=== PATIENT | male | born 2000 | race Caucasian/White ===

== ENCOUNTER 2023-04-17 15:33 | Outpatient (OUT) | payer BC, OTHER, SELFPAY ==
[2023-04-17 16:01] LABS: Hemoglobin 15.6 g/dL (14.0-18.0)
[2023-04-19 08:11] LABS: Testosterone 344 ng/dL (264-916)
== END 2023-04-17 15:34 | disposition home or self-care (01) ==
LOC: LAB 15:41
PROVIDERS: PCP Family Medicine
DX: E29.1 Testicular hypofunction (principal)
CPT/HCPCS: 36415; 84403; 85018

== ENCOUNTER 2023-08-12 12:11 | Outpatient (OUT) | payer BC, OTHER, SELFPAY ==
--- OUTSIDE RECORDS SUMMARY | 2023-08-12 12:15 | XMS_ITS | CCD ---
Author Organization [facility] Care Team Providers Care Supply Specialist Name Role Phone Yoel Concepcion Unavailable MAYELA, DR JULES Mortensen Primary Care Unavailable MARU FARIAS Consulting Unavailable JOSUÉ, DIANN Admitting Unavailable JOSUÉ, DIANN Attending Unavailable NADERENathalie, DR VICENTE A Primary Care Unavailable MISC, DR GARCIA Attending Unavailable MISC, DR GARCIA Admitting Unavailable MISC, DR GARCIA Consulting Unavailable NADERENathalie, DR JULES Mortensen Primary Care Unavailable MISC, DR GARCIA Attending Unavailable MISC, DR GARCIA Admitting Unavailable MISC, DR GARCIA Consulting Unavailable MISC, DR GARCIA Attending Unavailable MISC, DR GARCIA Admitting Unavailable MISC, DR GARCIA Consulting Unavailable NADERENathalie, DR JULES Mortensen Primary Care Unavailable MISC, DR GARCIA Attending Unavailable NADERENathalie, DR JULES Mortensen Primary Care Unavailable MISC, DR GARCIA Admitting Unavailable MISC, DR GARCIA Consulting Unavailable MISC, DOCTOR Attending Unavailable NADERER, DR JULES Mortensen Primary Care Unavailable MISC, DR GARCIA Admitting Unavailable MISC, DR GARCIA Consulting Unavailable ZIEBER, DR KEITH Zelaya Consulting Unavailable MISC, DR GARCIA Attending Unavailable NADERER, DR JULES Mortensen Primary Care Unavailable MISC, DR GARCIA Admitting Unavailable MISC, DR GARCIA Consulting Unavailable YEH, RADHA Consulting Unavailable Yoel Concepcion Unavailable [phone] Yoel Concepcion MD Unavailable Yoel Concepcion MD Unavailable BHUPENDRA MCFADDEN Referring Unavailable BHUPENDRA MCFADDEN Attending Unavailable BHUPENDRA MCFADDEN Attending Unavailable Medications Current Medications Medication Drug Class(es) Dates Sig (Normalized) Sig (Original) 2500 mg testosterone 0.0162 mg/mg topical gel (20 sources) Androgen Start: 06-02-2023 End: 12-03-2023 testosterone 1.62 % (40.5 mg/2.5 gram) glpk Indications: Hypogonadism, male Apply one packet per day alternating with 2 packet per day. Requested dispense is 3 months supply = 337.5 gram of the gel = 135 packets. 337.5 g 1 06/02/2023 12/03/2023 Active Start: 01-31-2023 End: 08-02-2023 testosterone 1.62 % (40.5 mg /2.5 gram) glpk Indications: Hypogonadism, male APPLY ONE PACKET TO THE SKIN DAILY 75 g 5 01/31/2023 06/02/2023 Discontinued Start: 06-17-2022 End: 12-23-2022 testosterone 1.62 % (40.5 mg /2.5 gram) glpk Indications: Hypogonadism, male Apply one packet per day alternating with 2 packet per day. Requested dispense is 3 months supply = 337.5 gram of the gel = 135 packets. 337.5 g 1 06/22/2022 12/23/2022 Active Start: 04-28-2022 End: 10-29-2022 testosterone 1.62 % (40.5 mg /2.5 gram) glpk Indications: Hypogonadism, male APPLY ONE PACKET TO THE SKIN DAILY DIRECTED. Requested dispense is 3 months supply = 225 gram of the gel = 90 packets. 225 g 1 04/28/2022 06/17/2022 Discontinued Start: 04-25-2022 End: 05-25-2022 testosterone 1.62 % (40.5 mg /2.5 gram) glpk Indications: Hypogonadism, male APPLY ONE PACKET TO THE SKIN DAILY DIRECTED 75 g 2 04/25/2022 04/28/2022 Discontinued Start: 11-29-2021 End: 04-25-2022 testosterone 1.62 % (40.5 mg /2.5 gram) glpk Indications: Hypogonadism, male Apply 1 Packet as directed once daily for 30 days. 30 Packet 2 11/29/2021 04/25/2022 Discontinued Start: 07-06-2021 End: 11-04-2021 testosterone 1.62 % (40.5 mg /2.5 gram) glpk Indications: Hypogonadism, male Apply 1 Packet as directed once daily for 30 days. 30 Packet 0 10/05/2021 Active Comment on above: Apply 1 Packet as di rected once daily for 60 days. Requested dispense per month is 30 packets or 75 gram of gel. Apply 1 Packet as di rected once daily for 30 days. APPLY ONE PACKET TO THE SKIN DAILY DIRECTED APPLY ONE PACKET TO THE SKIN DAILY DIRECTED. Requested dispense is 3 months supply = 225 gram of the gel = 90 packets. Apply one packet per day alternating with 2 packet per day. Requested dispense is 3 months supply = 337.5 gram of the gel = 135 packets. APPLY ONE PACKET TO THE SKIN DAILY Problems Active Problems Problem Classification Problem Date Documented Da te Episodic/Chronic Other endocrine disorders (20 sources) Male hypogonadism; Translations: [Testicular hypofunction] Onset: 07-05-2021 07-05-2021 Chronic Other endocrine disorders (20 sources) Pituitary cyst; Translations: [Other disorders of pituitary gland] Onset: 07-05-2021 07-05-2021 Chronic Other endocrine disorders (5 sources) Testicular hypofunction; Translations: [TESTICULAR HYPOFUNCTION] Onset: 07-05-2021 Chronic Other endocrine disorders (1 source) Other disorders of pituitary gland; Translations: [OTHER DISORDERS OF PITUITARY GLAND] Onset: 08-17-2021 Chronic Other liver diseases (4 sources) Alkaline phosphatase raised; Translations: [Abnormal levels of other serum enzymes] Onset: 07-06-2021 07-06-2021 Episodic Other liver diseases (20 sources) Alkaline phosphatase bone isoenzyme raised; Translations: [Abnormal levels of other serum enzymes] Onset: 07-06-2021 07-14-2021 Episodic Other screening for suspected conditions (not mental disorders or infectious disease) (20 sources) Karyotype evaluation abnormal; Translations: [Other abnormal findings in specimens from other organs, systems and tissues] Onset: 07-14-2021 07-14-2021 Episodic Poisoning by nonmedicinal substances (4 sources) Toxic effect of venom of bees, accidental (unintentional), initial encounter; Translations: [TOXIC EFF VENOM BEES ACC INIT ENC] Onset: 11-24-2021 Episodic Past or Other Problems Problem Classification Problem Date Documented Da te Episodic/Chronic Other circulatory disease (20 sources) Elevated blood-pressure reading without diagnosis of hypertension; Translations: [Elevated blood-pressure reading, without diagnosis of hypertension] Onset: 07-05-2021 07-05-2021 Episodic Other liver diseases (6 sources) Abnormal levels of other serum enzymes; Translations: [ABNORMAL LEVELS OTHER SERUM ENZYMES] Onset: 07-14-2021 Episodic Results Test Name Value Interpretation Reference [facility] Telephone (ENDOAV) ROMAN CHAWLA ([id number]) 4 M Date Time Provider Department 04/20/23 BHUPENDRA MCFADDEN During your visit today, we recorded the following information about you: Sabrina Morrison RN 04/20/2023 12:03 PM Signed Lab results received for Testosterone. Updated in [facility] as External Lab. Sent lab to [facility]. Bhupendra Mcfadden MD 04/24/2023 12:27 PM Signed Please obtain final report/additional results. Bioavailable testosterone, male and Hemoglobin were requested. Only total testosterone is received. Bhupendra Mcfadden MD, JUAN J Sabrina Morrison, ANGY 04/25/2023 9:58 AM Signed I called [facility] and left a detailed VM asking for results to be faxed to us. Left POD A number to call back also. Sabrina Morrison RN 04/25/2023 12:34 PM Signed Received a call back, Hgb will be sent over. They did not draw for the bioavailable testosterone, male. They tried to see if it could be added on, it cannot. Not enough in the sample. They will credit the patient's account. Sabrina Morrison RN 04/26/2023 10:46 AM Signed Received HGB from [employer]. Placed in folder. Bhupendra Mcfadden MD 05/01/2023 5:31 PM Signed Patient was informed through a [employer] message. Bhupendra Mcfadden MDJUAN J Allergies As of Date: 04/20/2023 (No Known Allergies) Date Reviewed: 10/27/2022 Reviewed by: Rosa Youssef Ma - Fully Assessed Reason for Visit: Results [95] Order(s):TESTOSTERONE, FREE [[id number]] Order #: [id number] Prescriptions as of 05/01/2023 - testosterone 1.62 % (40.5 mg/2.5 gram) glpk APPLY ONE PACKET TO THE SKIN DAILY Problem List As Of Date 04/20/2023 Noted Resolved Hypogonadism, male [E29.1] 07/05/2021 Pituitary cyst (HCC) [E23.6] 07/05/2021 Elevated blood pressure reading without diagnos*07/05/2021 High serum bone-specific alkaline phosphatase [*07/06/2021 Abnormal karyotype [R89.8] 07/14/2021 Encounter Status:Closed by SABRINA MORRISON on 04/20/23 Normal [facility] TESTOSTERONE, FREEon 024 Testosterone [Mass/Vol] 344 ng/dL 264 - 916 [facility] CNCOon 04-10-2023 CNCO Letter Text Normal [facility] CNPNon 04-06-2023 CNPN Telephone (EMQ) ROMAN CHAWLA ([id number]) 4 M Date Time Provider Department 04/06/23 BHUPENDRA MCFADDEN EMQ During your visit today, we recorded the following information about you: Irish Yun 04/06/2023 4:26 PM Signed Testosterone has been approved Notified patient through [employer] Approved [id number] Prior authorization approved Payer: Hilda MAHONEY Case: [id number], Status: Approved, Coverage Starts on: 04/06/2023 12:00:00 AM, Coverage Ends on: 04/05/2024 12:00:00 AM. Approval Details Authorization number: [id number] Authorized from April 06, 2023 to April 05, 2024 Allergies As of Date: 04/06/2023 (No Known Allergies) Date Reviewed: 10/27/2022 Reviewed by: Rosa Youssef Ma - Fully Assessed Reason for Visit: Medication Preauthorization [914] Cmt: Testosterone approved Prescriptions as of 04/06/2023 - testosterone 1.62 % (40.5 mg/2.5 gram) glpk APPLY ONE PACKET TO THE SKIN DAILY Problem List As Of Date 04/06/2023 Noted Resolved Hypogonadism, male [E29.1] 07/05/2021 Pituitary cyst (HCC) [E23.6] 07/05/2021 Elevated blood pressure reading without diagnos*07/05/2021 High serum bone-specific alkaline phosphatase [*07/06/2021 Abnormal karyotype [R89.8] 07/14/2021 Encounter Status:Closed by IRISH YUN on [facility]06/[facility] ([id number]) [birth year]/ M Date Time Provider Department 04/06/23 BHUPENDRA MCFADDEN EMQ During your visit today, we recorded the following information about you: Irish Yun 04/06/2023 9:01 AM Signed Initiated PA for Testosterone through [employer] via [facility] Waiting for next steps Questions completed- yes Waiting for determination -pending Allergies As of Date: 04/06/2023 (No Known Allergies) Date Reviewed: 10/27/2022 Reviewed by: Rosa Youssef Ma - Fully Assessed Reason for Visit: Medication Preauthorization [914] Cmt: Testosterone Prescriptions as of 04/06/2023 - testosterone 1.62 % (40.5 mg/2.5 gram) glpk APPLY ONE PACKET TO THE SKIN DAILY Problem List As Of Date 04/06/2023 Noted Resolved Hypogonadism, male [E29.1] 07/05/2021 Pituitary cyst (HCC) [E23.6] 07/05/2021 Elevated blood pressure reading without diagnos*07/05/2021 High serum bone-specific alkaline phosphatase [*07/06/2021 Abnormal karyotype [R89.8] 07/14/2021 Encounter Status:Closed by IRISH YUN on 04/06/23 Normal [facility] CNCOon 11-07-2022 CNCO Letter Text Normal [facility] ALK PHOS BONE SPECon 023 ALK PHOSPHATASE, BONE 34.9 ug/L High 10.0-28.8 [facility] Comment on above: Order Comment: Speci men Type: BLOOD SPECIMEN Ordering Facility: [facility] Address: [address] [place], [place] [address] Result Comment: INTE RPRETIVE INFORMATION: Bone Specific Alkaline Phosphatase Liver alkaline phosphatase can affect the measurement of bone specific alkaline phosphatase in this assay. Each 100 U/L of liver alkaline phosphatase contributes an additional 2.5 to 5.8 ug/L to the bone specific alkaline phosphatase result. Performed By: [facility] [address] [place] [address] [facility] Therapist: Celso Torres MD, PhD CLIA Number: [id number] Performed By: #### A PBONE #### [facility] CLIA [id number] [address] [place] [address] BIOAVAILABLE TESTOSTERONE, A DULT MALEon 10-27-2022 Albumin [Mass/Vol] 5.0 g/dL High 3.9 - 4.9 g/dL [facility] Sex hormone binding globulin [Moles/Vol] 27 nmol/L 14 - 82 nmol/L [facility] Testo Bioavailable 386.8 ng/dL High 105.0 - 3 24.0 ng/dL [facility] Testo Free Calc 124.0 pg/mL High 38.0 - 120.0 pg/mL [facility] Testo Percent Free 2.0 % 1.1 - 2.6 % [facility] Testosterone [Mass/Vol] 621 ng/dL 193 - 824 ng/dL [facility] Albumin [Mass/Vol] 5.0 g/dL High 3.9-4.9 [facility] Comment on above: Order Comment: Speci men Type: BLOOD SPECIMEN Ordering Facility: [facility] Address: [address] [place], [place] [address] Performed By: #### S QBTESTM, 2730-09 #### [facility] CLIA [id number] [address] [place] [address] [place] Sex hormone binding globulin [Moles/Vol] 27 nmol/L Normal 14-82 [facility] Comment on above: Order Comment: Speci men Type: BLOOD SPECIMEN Ordering Facility: [facility] Address: [address] [place] [address] Performed By: #### S QBTESTM, 2730-09 #### [facility] CLIA [id number] [address] [place] [address] [place] Testosterone [Mass/Vol] 621 ng/dL Normal 193-824 [facility] Comment on above: Order Comment: Speci men Type: BLOOD SPECIMEN Ordering Facility: [facility] Address: [address] [place] [address] Result Comment: A te stosterone level in the 193-320 ng/dL range with associated clinical symptoms is considered low and may indicate hypogonadism (from [facility] 2010 363:123-135). Results >320 ng/dL are considered normal. Performed By: #### S QBTESTM, 2730-09 #### [facility] CLIA [id number] [address] [place] [address] [place] TSTBIO 386.8 ng/dL High 105.0-324.0 [facility] Comment on above: Order Comment: Speci men Type: BLOOD SPECIMEN Ordering Facility: [facility] Address: [address] [place], [place] [address] Performed By: #### S QBTESTM, 2730-09 #### [facility] CLIA [id number] [address] TSTFRC 124.0 pg/mL High 38.0-120.0 [facility] Comment on above: Order Comment: Speci men Type: BLOOD SPECIMEN Ordering Facility: [facility] Address: [address] [place] [address] Performed By: #### S QBTESTM, 2738 #### [facility] CLIA [id number] [address] [place] [address] TSTFRP 2.0 % Normal 1.1-2.6 [facility] Comment on above: Order Comment: Speci men Type: BLOOD SPECIMEN Ordering Facility: [facility] Address: [place] [address] Performed By: #### S QBTESTM, 2738 #### [facility] CLIA [id number] [address] [place] [address] CNOVon 10-27-2022 CNOV Office Visit (ENDOAV ) ROMAN CHAWLA ([id number]) 4 M Date Time Provider Department 10/27/22 1:40 PM BHUPENDRA MCFADDEN ENDOAV During your visit today, we recorded the following information about you: Pulse Respiration Blood pressure Weight 68/minute 16/minute 118/79 71.2 kg Bhupendra Mcfadden MD 10/27/2022 4:34 PM Signed HISTORY OF PRESENT ILLNESS: Roman 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 Interval History: Patient is feeling well. He is using his testosterone regularly for the most part. He may forget to use it on occassions. Patient is taking no calcium and vitamin D. Patient is exercising 3 times a week, each is about 60 minutes. Patient has stable weight Current Outpatient Medications Medication Sig testosterone 1.62 % (40.5 mg/2.5 gram) glpk Apply one packet per day alternating with 2 packet per day. Requested dispense is 3 months supply = 337.5 gram of the gel = 135 packets. No current facility-administered medications for this visit. PHYSICAL EXAMINATION: BP 118/79 Pulse 68 Resp 16 Wt 71.2 kg (157 lb) BMI 21.71 kg/m? Normal appearance and development of muscle mass HEENT: no pallor or jaundice, no exophthalmous or lid lag Neck: no thyromegaly, no adenopathy, no thyroid or carotid bruit. Heart: RRR no murmur or gallop Deep tendon reflexes are + 2 with normal relaxation phase and no tremor in upper extremities. There were no new labs since last visit May,. IMPRESSION AND PLAN: 1. 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 Pituitary looked normal on MRI (Mar 2020 and July 2021). Incidentally, a 2.5 mm pituitary/arachnoid cyst was diagnosed. Testicular ultrasound confirmed small testicles, no other finding. Patient is currently on treatment with testosterone gel 1.62%, using 2.5 gram packs, alternating 1 pack per day and 2 packs per day. Obtain labs. Patient's mother indicated the need for prior auth for testosterone gel. We will process this request. 2. Elevated Alk phos, bone specific: Incidental finding on labs July 05, 2021. No explanation is identified for this elevated. PTH and vitamin D were normal. Vitamin D was on the lower limit of reference range (Oct, 2021). Bone survey was normal (August,). Repeat labs 3. Pituitary Cyst: An incidental finding on a pituitary MRI Mar, 2020. No new item today. Inactive problem. Pituitary functions test are normal (labs July,). The cyst was stable on follow up pituitary MRI July,. Patient expressed understanding and agreed with plan. He was accompanied by his mother. Bhupendra Mcfadden MD, JUAN J Allergies As of Date: 10/27/2022 (No Known Allergies) Date Reviewed: 10/27/2022 Reviewed by: Rosa Youssef Ma - Fully Assessed Reason for Visit: Hypogonadism [2925] Primary Visit Diagnosis:Hypogonadism , male [E29.1] Other Visit Diagnosis:High serum bone-specific alkaline phosphatase [R74.8] Order(s):ALK PHOS BONE SPEC [SQAPBONE] Order #: [id number] FUTURE RENAL FUNCTION PANEL [SQRFP] Order #: [id number] FUTURE BIOAVAILABLE TESTOSTERONE, ADULT MALE [SQBTESTM] Order #: [id number] FUTURE HEMOGLOBIN (HGB) [SQHGB] Order #: [id number] FUTURE PTH INTACT BLD [SQPTHI] Order #: [id number] FUTURE Prescriptions as of 10/27/2022 - testosterone 1.62 % (40.5 mg/2.5 gram) glpk Apply one packet per day alternating with 2 packet per day. Requested dispense is 3 months supply = 337.5 gram of the gel = 135 packets. Problem List As Of Date 10/27/2022 Noted Resolved Hypogonadism, male [E29.1] 07/05/2021 Pituitary cyst (HCC) [E23.6] 07/05/2021 Elevated blood pressure reading without diagnos*07/05/2021 High serum bone-specific alkaline phosphatase [*07/06/2021 Abnormal karyotype [R89.8] 07/14/2021 Disposition: Return in about 1 year (around 10/28/2023), or based on test results. Follow-up and Disposition History for Encounter Date Provider Department Center 10/27/2022 [id number] MCFADDEN ENDOAV REJ Letter Text Encounter Status:Closed by BHUPENDRA MCFADDEN on 10/27/22 Normal [facility] HEMOGLOBIN (HGB)on Hemoglobin (Bld) [Mass/Vol] 15.0 g/dL 13.0 - 17.0 g/dL [facility] Hgb Bld-ncon 10-27-2022 Hemoglobin (Bld) [Mass/Vol] 15.0 g/dL Normal 13.0-17.0 [facility] Comment on above: Order Comment: Speci men Type: BLOOD SPECIMEN Ordering Facility: [facility] Address: [address] [place] [address] [place], [place] Performed By: #### 7 18-7 #### [facility] CLIA [id number] [address] [place] [address] [place] PTH INTACT BLDon 10-27-2022 Parathyrin.intact [Mass/Vol] 40 pg/mL 15 - 65 pg/mL [facility] PTH-Intact SerPl-mCncon 08-3 Parathyrin.intact [Mass/Vol] 40 pg/mL Normal 15-65 [facility] Comment on above: Order Comment: Speci men Type: BLOOD SPECIMEN Ordering Facility: [facility] Address: [address] Performed By: #### S QBTEST, 2731-8 #### [facility] CLIA [id number] [address] [facility] [id number] [address] [place] Renal function 2000 panelon 10-27-2022 Albumin [Mass/Vol] 4.9 g/dL Normal 3.9-4.9 [facility] Comment on above: Order Comment: Speci men Type: BLOOD SPECIMEN Ordering Facility: [facility] Address: [address] Performed By: #### 2 4362-6 #### [facility] IA [id number] [address] [place] [address] [place] Anion gap [Moles/Vol] 11 mmol/L Normal 9-18 [facility] Comment on above: Order Comment: Speci men Type: BLOOD SPECIMEN Ordering Facility: [facility] Address: [address] Performed By: #### 2 4362-6 #### [facility] IA [id number] [address] [place] [address] [place] Calcium [Mass/Vol] 10.0 mg/dL Normal 8.5-10.2 [facility] Comment on above: Order Comment: Speci men Type: BLOOD SPECIMEN Ordering Facility: [facility] Address: [address] Performed By: #### 2 4362-6 #### [facility] CLIA [id number] [address] [place] [address] [place] Chloride [Moles/Vol] 103 mmol/L Normal 97-105 [facility] Comment on above: Order Comment: Speci men Type: BLOOD SPECIMEN Ordering Facility: [facility] Address: [address] Performed By: #### 2 4362-6 #### [facility] CLIA [id number] [address] [place] [address] [place] CO2 [Moles/Vol] 27 mmol/L Normal 22-30 [facility] Comment on above: Order Comment: Speci men Type: BLOOD SPECIMEN Ordering Facility: [facility] Address: [address] [place] [address] Performed By: #### 2 4362-6 #### [facility] CLIA [id number] [address] [place] [address] [place] Creatinine [Mass/Vol] 0.98 mg/dL Normal 0.73-1.22 [facility] Comment on above: Order Comment: Innai men Type: BLOOD SPECIMEN Ordering Facility: [facility] Address: [address] [place] [address] Performed By: #### 2 4362-6 #### [facility] CLIA [id number] [address] [place] [address] [place] Creatinine and Glomerular filtration rate.predicted panel (S/P/Bld) 113 mL/min/1.73m??? Normal >=60 [facility] Comment on above: Order Comment: Speci men Type: BLOOD SPECIMEN Ordering Facility: [facility] Address: [address] [place], [place] [address] Result Comment: Gabrielle mated Glomerular Filtration Rate (eGFR) is calculated using the 2020 CKD-EPI creatinine equation. This equation utilizes serum creatinine, sex, and age as parameters. The creatinine assay has traceable calibration to isotope dilution-mass spectrometry. Refer to KDIGO guidelines for clinical interpretation. In patients with unstable renal function, e.g. those with acute kidney injury, the eGFR may not accurately reflect actual GFR. Performed By: #### 2 4362-6 #### [facility] CLIA [id number] [address] [place] [address] [place] Glucose [Mass/Vol] 88 mg/dL Normal 74-99 [facility] Comment on above: Order Comment: Billy simms Type: BLOOD SPECIMEN Ordering Facility: [facility] Address: [address] [place] [address] Result Comment: The [place] Diabetes [employer] (ADA) provides guidance for cutoff values for fasting glucose and random glucose. The ADA defines fasting as no caloric intake for at least 8 hours. Fasting plasma glucose results between 100 to 125 mg/dL indicate increased risk for diabetes (prediabetes). Fasting plasma glucose results greater than or equal to 126 mg/dL meet the criteria for diagnosis of diabetes. In the absence of unequivocal hyperglycemia, results should be confirmed by repeat testing. In a patient with classic symptoms of hyperglycemia or hyperglycemic crisis, random plasma glucose results greater than or equal to 200 mg/dL meet the criteria for diagnosis of diabetes. Reference: Standards of Medical Care in Diabetes 2016, [place] [employer]. Diabetes Care. 2016.39(Suppl 1). Performed By: #### 2 4362-6 #### [facility] CLIA [id number] [place] [address] [place] Phosphate [Mass/Vol] 3.6 mg/dL Normal 2.7-4.8 [facility] [facility] Comment on above: Order Comment: Billy simms Type: BLOOD SPECIMEN Ordering Facility: [facility] Address: [address] [address] Performed By: #### 2 4362-6 #### [facility] CLIA [id number] [place] [address] [place] Potassium [Moles/Vol] 4.4 mmol/L Normal 3.7-5.1 [facility] Comment on above: Order Comment: Billy simms Type: BLOOD SPECIMEN Ordering Facility: [facility] Address: [address] [address] Performed By: #### 2 4362-6 #### [facility] CLIA [id number] [place] [address] [place] Sodium [Moles/Vol] 141 mmol/L Normal 136-144 [facility] Comment on above: Order Comment: Speci men Type: BLOOD SPECIMEN Ordering Facility: [facility] Address: [address] [id number] Performed By: #### 2 4362-6 #### [facility] CLIA [id number] [address] [place] [address] [place] Urea nitrogen [Mass/Vol] 14 mg/dL Normal 9-24 [facility] Comment on above: Order Comment: Speci men Type: BLOOD SPECIMEN Ordering Facility: [facility] Address: [address] [address] Performed By: #### 2 4362-6 #### [facility] CLIA [id number] [address] [place] [address] [place] Albumin [Mass/Vol] 4.9 g/dL 3.9 - 4.9 g/dL [facility] Anion gap [Moles/Vol] 11 mmol/L 9 - 18 mmol/L [facility] Calcium [Mass/Vol] 10.0 mg/dL 8.5 - 10. 2 mg/dL [facility] Chloride [Moles/Vol] 103 mmol/L 97 - 105 mmol/L [facility] CO2 [Moles/Vol] 27 mmol/L 22 - 30 mmol/L [facility] Creatinine [Mass/Vol] 0.98 mg/dL 0.73 - 1.22 mg/dL [facility] Estimated Glomerular Filtration Rate 113 mL/min/1.73m >=60 mL/min/1.73m [facility] Glucose [Mass/Vol] 88 mg/dL 74 - 99 mg/dL [facility] Phosphate [Mass/Vol] 3.6 mg/dL 2.7 - 4.8 mg/dL [facility] Potassium [Moles/Vol] 4.4 mmol/L 3.7 - 5.1 mmol/L [facility] Sodium [Moles/Vol] 141 mmol/L 136 - 144 mmol/L [facility] Urea nitrogen [Mass/Vol] 14 mg/dL 9 - 24 mg/dL [facility] BIOAVAILABLE and FREE TESTOS TERONEon 02-13-2022 % Free TEst. Dialysis 1.2 % Normal [facility] Comment on above: Result Comment: This test was developed and its performance characteristics determined by [facility]. It has not been cleared or approved by the Food and Drug Administration. Reference Range: Adult Males: 1.5 - 3.2 Performed By: #### B IOTEST #### [facility] [address] [place] [address] Dr. Giuliana Horowitz Bio Avail Test. % 38.7 % Normal [facility] Comment on above: Performed By: #### B IOTEST #### [facility] [id number] Giuliana Horowitz Bio Available Test. Serum 136 ng/dL Normal [facility] Comment on above: Result Comment: Refe rence Range: Males (20 - 39y): 128 - 430 Performed By: #### B IOTEST #### [facility] [address] [address] [address] Giuliana Horowitz Free Test. Serum 42 pg/mL Critically low [facility] Comment on above: Result Comment: Refe rence Range: Adult Males: 52 - 280 Performed By: #### B IOTEST #### [facility] [address] [place], [place] [id number] Dr. Giuliana Horowitz Testosterone [Mass/Vol] 351 ng/dL Normal [facility] Comment on above: Result Comment: This test was developed and its performance characteristics determined by [facility]. It has not been cleared or approved by the Food and Drug Administration. Reference Range: Adult Males >18 years 264 - 916 This [facility] LC/MS-MS method is currently certified by the CDC Hormone Standardization Program (HoST). Adult male reference interval is based on a population of healthy nonobese males (BMI <30) between 19 and 39 years old. [email or web address]. JCEM 2017,102;1495-3614 PMID: [id number]. Performed By: #### B IOTEST #### [facility] [address] [place], [place] [id number] Dr. Giuliana Horowitz BONE-SPECIFIC ALK PHOS (BAP) on 11-23-2021 Bone-Specific Alkaline Phosphatase 63.0 ug/L Critically high 12.2-36.6 [facility] Comment on above: Result Comment: Perf ormed at: BN Performed By: #### B ALP #### [facility] [address] [place] [address] Dr. Giuliana Horowitz Test Information . Normal [facility] Comment on above: Result Comment: Perf ormed at: TG Performed By: #### B ALP #### [facility] [address] [address] [address] Giuliana Horowitz TESTOSTERONE, FREE,DIRECT, T OTALon 11-21-2021 Free Testosterone(Direct ) 25.5 pg/mL Normal Not Estab. [facility] Comment on above: Result Comment: Perf ormed at: BN Performed By: #### T ESTFRD #### [facility] [address] [place] [address] Dr. Giuliana Horowitz Testosterone [Mass/Vol] 887 ng/dL Critically high 150-785 [facility] Comment on above: Result Comment: Age Range 0 - 5 months 0 - 650 6m- 8 years 0 - 36 9 - 10 years 0 - 21 11 years 1 - 161 12 years 2 - 521 13 - 15 years 28 - 656 16 - 19 years 150 - 785 >19 years 264 - 916 Performed at: CB Performed By: #### T ESTFRD #### [facility] [address] [place] [address] Dr. Giuliana Horowitz PTH INTACTon 11-19-2021 PTH, Intact 22 pg/mL Normal 15-65 [facility] Comment on above: Performed By: #### P THINT #### [facility] [address] [place] [address] Dr. Giuliana Horowitz CALCIUMon 11-18-2021 Calcium [Mass/Vol] 9.2 mg/dL Normal 8.5-10.1 [facility] Comment on above: Performed By: #### T ESTFWB #### [facility] [address] [place] [address] Dr. Giuliana Horowitz HEMOGLOBINon 11-18-2021 Hemoglobin (Bld) [Mass/Vol] 14.8 g/dL Normal 14.0-18.0 [facility] Comment on above: Performed By: #### T ESTFWB #### [facility] [address] [place] [address] Dr. Giuliana Horowitz VITAMIN D 25 OHon 11-18-2021 VIT D 25-OH 32.5 ng/mL Normal [facility] Comment on above: Performed By: #### A LKPISO #### [facility] [address] [place] [address] Dr. Giuliana Horowitz VIT D RANGES SEE BELOW Normal [facility] Comment on above: Result Comment: <20 ng/mL Vit D deficient 20 - <30 ng/mL Vit D insufficient 30 - 100 ng/mL Vit D sufficient >100 ng/mL Potential Toxicity Performed By: #### A LKPISO #### [facility] [address] [place] [address] Dr. Giuliana Horowitz XR BONE SURVEYon 09-14-2021 XR BONE SURVEY EXAMINATION: XR BONE SURVEY HISTORY: High enzyme level in serum COMPARISON: No relevant comparison available. TECHNIQUE: Two lateral projections of the skull. A lateral projection of the C-spine, T-spine and L-spine. Single view of the chest and pelvis. Single view of each humerus, forearm, femur, and tibia-fibula. FINDINGS: SKULL: No lytic lesion, periosteal reaction/thickening, fracture, or dislocation. C-SPINE: No lytic lesion, periosteal reaction/thickening, fracture, or dislocation. T-SPINE: No lytic lesion, periosteal reaction/thickening, fracture, or dislocation. L-SPINE: No lytic lesion, periosteal reaction/thickening, fracture, or dislocation. CHEST: No expansile lesion, lytic lesion, or fracture. PELVIS: No lytic lesion, periosteal reaction/thickening, fracture, or dislocation. R HUMERUS: No lytic lesion, periosteal reaction/thickening, fracture, or dislocation. L HUMERUS: No lytic lesion, periosteal reaction/thickening, fracture, or dislocation. R FEMUR: No lytic lesion, periosteal reaction/thickening, fracture, or dislocation. L FEMUR: No lytic lesion, periosteal reaction/thickening, fracture, or dislocation. SOFT TISSUES: No visible swelling, nodules, visible mass, or radiopaque foreign body. IMPRESSION: 1. Normal appearance of the bones. No suspicious findings. Electronically authenticated by: KEITH TERRIBRIAN Date: 2021-09-14 07:49 Normal [facility] TESTOSTERONE, FREE,DIRECT, T OTALon 08-18-2021 Free Testosterone(Direct ) 21.1 pg/mL Normal Not Estab. [facility] Comment on above: Result Comment: Perf ormed at: BN Performed By: #### T ESTFWB #### [facility] [id number] Giuliana Horowitz Testosterone [Mass/Vol] 704 ng/dL Normal 150-785 [facility] Comment on above: Result Comment: Age Range 0 - 5 months 0 - 650 6m- 8 years 0 - 36 9 - 10 years 0 - 21 11 years 1 - 161 12 years 2 - 521 13 - 15 years 28 - 656 16 - 19 years 150 - 785 >19 years 264 - 916 Performed at: CB Performed By: #### T ESTFWB #### [facility] [address] [address] [address] Giuliana Horowitz MRI PITUITARY WO W CONon MRI PITUITARY WO W CON EXAMINATION: MRI PITUITARY WO W CON HISTORY: Disorder of pituitary gland Pituitary cyst. COMPARISON: 04/02/2020. TECHNIQUE: Multiplanar, multisequence MRI images of the brain and pituitary gland was obtained without and with contrast. FINDINGS: The pituitary gland is of relatively small size for patient's age. Centrally the gland measures up to 1.5 mm in craniocaudal dimension. Laterally the gland measures up to 4.5 mm in craniocaudal dimension. At the posterior margin of the gland, there is redemonstration of a nonenhancing focus measuring up to 2.3 mm on the sagittal images. This may be a cystic lesion. This appears unchanged. Pituitary stalk remains midline. No mass effect on the optic chiasm. The ventricles and sulci are normal in size for age. No hydrocephalus. No foci of abnormal signal in the brain parenchyma. No midline shift or pathologic extra-axial fluid collections. There is no Chiari malformation. Orbital apices are clear. Central intracranial flow voids of the cervical os are visualized, implying that the vessels are patent. IMPRESSION: 1. Stable appearance of the pituitary/sella. The pituitary gland remains very small in size for patient's age. 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 There is otherwise no suprasellar extension of pituitary gland. No mass effect on the optic chiasm. 2. Normal appearance of the remaining whole brain. Electronically authenticated by: RADHA FUNK Date: 2021-08-14 22:34 Normal [facility] ACTH, PLASMAon 08-14-2021 ACTH, Plasma 19.5 pg/mL Normal 7.2-63.3 [facility] Comment on above: Result Comment: ACTH reference interval for samples collected between 7 and 10 AM. Performed By: #### A SCOTTPISO #### [facility] [address] [address] [address] Giuliana Horowitz CORTISOLon 08-14-2021 Cortisol 17.6 ug/dL Normal [facility] Comment on above: Result Comment: Adis isol AM 6.2 - 19.4 Cortisol PM 2.3 - 11.9 Performed By: #### A LKPISO #### [facility] [address] [place], [place] [address] Dr. Giuliana Horowitz CONVUOA-UBGF-TICQJQ-FACTOR 1 on 08-14-2021 Insulin-Like Growth Factor I 318 ng/mL Normal 122-435 [facility] Comment on above: Result Comment: AGE MALE AGE MALE <1 year 18 - 79 11 years 82 - 423 1 year 20 - 108 12 years 87 - 519 2 years 24 - 135 13 years 101 - 620 3 years 28 - 148 14 years 123 - 701 4 years 32 - 165 15 years 161 - 760 5 years 37 - 196 16 years 171 - 748 6 years 43 - 229 17 years 161 - 635 7 years 50 - 243 18 years 145 - 506 8 years 59 - 275 19 years 122 - 435 9 years 67 - 315 20 years 116 - 410 10 years 75 - 366 Performed By: #### I NSGF1 #### [facility] [address] [place], [place] [address] Dr. Giuliana Horowitz PROLACTINon 08-14-2021 Prolactin 18.0 ng/mL Critically high 4.0-15.2 [facility] Comment on above: Performed By: #### A LKPISO #### [facility] [address] [place] [address] Dr. Giuliana Horowitz PTH INTACTon 08-14-2021 PTH, Intact 27 pg/mL Normal 15-65 [facility] Comment on above: Performed By: #### P THINT #### [facility] [address] [place] [address] Dr. Giuliana Horowitz CALCIUMon 08-13-2021 Calcium [Mass/Vol] 8.9 mg/dL Normal 8.5-10.1 [facility] Comment on above: Performed By: #### A LKPISO #### [facility] [address] [place] [address] Dr. Giuliana Horowitz FREE T4on 08-13-2021 Free T4 [Mass/Vol] 1.01 ng/dL Normal 0.78-1.34 [facility] Comment on above: Performed By: #### V ITAD, FT4 #### [facility] [address] [place] [address] Dr. Giuliana Horowitz HEMOGLOBINon 08-13-2021 Hemoglobin (Bld) [Mass/Vol] 14.1 g/dL Normal 14.0-18.0 [facility] Comment on above: Performed By: #### A LKPISO #### [facility] [address] [place] [address] Dr. Giuliana Horowitz TSHon 08-13-2021 TSH 1.787 uIU/mL Normal 0.516-4.130 [facility] Comment on above: Performed By: #### A SCOTTPISO #### [facility] [address] [place] [address] Dr. Giuliana Horowitz VITAMIN D 25 OHon 08-13-2021 VIT D 25-OH 30.3 ng/mL Normal [facility] Comment on above: Performed By: #### V ITAD, FT4 #### [facility] [address] [place] [address] Dr. Giuliana Horowitz VIT D RANGES SEE BELOW Normal [facility] Comment on above: Result Comment: <20 ng/mL Vit D deficient 20 - <30 ng/mL Vit D insufficient 30 - 100 ng/mL Vit D sufficient >100 ng/mL Potential Toxicity Performed By: #### V ITAD, FT4 #### [facility] [address] [place] [address] Dr. Giuliana Horowitz TESTOSTERONE, FREE, WEAKLY B OUNDon 07-16-2021 Testosterone [Mass/Vol] 12 ng/dL Critically low 150-785 [facility] Comment on above: Result Comment: Age Range 0 - 5 months 0 - 650 6m- 8 years 0 - 36 9 - 10 years 0 - 21 11 years 1 - 161 12 years 2 - 521 13 - 15 years 28 - 656 16 - 19 years 150 - 785 >19 years 264 - 916 Performed at: CB Performed By: #### T ESTFWB #### [facility] [address] [place] [address] Dr. Giuliana Horowitz TESTOSTERONE, % FREE+WEAKLY BOUND 19.0 % Normal 9.0-46.0 [facility] Comment on above: Result Comment: This test was developed and its performance characteristics determined by [employer]. It has not been cleared or approved by the Food and Drug Administration. Performed at: BN Performed By: #### T ESTFWB #### [facility] [address] [place] [address] Dr. Giuliana Horowitz TESTOSTERONE, F+W BOUND 2.3 ng/dL Critically low 40.0-250.0 [facility] Comment on above: Result Comment: Perf ormed at: CB Performed By: #### T ESTFWB #### [facility] [address] [place] [address] Dr. Giuliana Horowitz HEMOGLOBINon 07-12-2021 Hemoglobin (Bld) [Mass/Vol] 14.0 g/dL Normal 14.0-18.0 [facility] Comment on above: Performed By: #### A LKPISO #### [facility] [address] [place] [address] Dr. Giuliana Horowitz ALKP ISOENZYMESon 07-09-2021 ALP [Catalytic activity/Vol] 197 U/L Critically high 51-125 [facility] Comment on above: Performed By: #### A LKPISO #### [facility] [address] [place], [place] [address] Dr. Giuliana Horowitz Bone Fraction: 74 % Critically high 12 [facility] Comment on above: Performed By: #### A LKPISO #### [facility] [address] [place], [place] [address] Dr. Giuliana Horowitz Intestinal Frac.: 4 % Normal 0-18 [facility] Comment on above: Performed By: #### A LKPISO #### [facility] [address] [place], [place] [address] Dr. Giuliana Horowitz Liver Fraction: 21 % Normal 13-88 [facility] Comment on above: Performed By: #### A LKPISO #### [facility] [address] [place], [place] [address] Dr. Giuliana Horowitz Vital Signs Date Time Vital Sign Value Performing Clinician Faci lity 10-27-2022 13:28-0400 Body weight 71.22 kg Bhupendra Mcfadden MD Work Phone: [facility] 10-27-2022 13:28-0400 Diastolic blood pressure 79 mm[Hg] Bhupendra Mcfadden MD Work Phone: [facility] 10-27-2022 13:28-0400 Heart rate 68 /min Bhupendra Mcfadden MD Work Phone: [facility] 10-27-2022 13:28-0400 Respiratory rate 16 /min Bhupendra Mcfadden MD Work Phone: [facility] 10-27-2022 13:28-0400 Systolic blood pressure 118 mm[Hg] Bhupendra Mcfadden MD Work Phone: [facility] Encounters Encounter Date Encounter Type Care Provider Facility Start: 06-30-2023 End: 06-30-2023 ambulatory BHUPENDRA MCFADDEN Facility:[facility] Start: 06-30-2023 End: 06-30-2023 Patient encounter procedure Bhupendra Mcfadden MD Work Phone: Endocrinology Comment on above: Hypogonadism, male ( Primary Dx); High serum bone-specific alkaline phosphatase; Abnormal karyotype Start: 06-30-2023 End: 06-30-2023 Telemedicine consultation with patient Bhupendra Mcfadden MD Work Phone: Endocrinology Start: 06-27-2023 ambulatory Bhupendra Mcfadden MD Work Phone: Endocrinology Start: 06-27-2023 Patient encounter procedure Bhupendra Mcfadden MD Work Phone: Endocrinology Comment on above: Appointment Start: 06-01-2023 ambulatory Bhupendra Mcfadden MD Work Phone: Endocrinology Comment on above: [facility] Start: 05-08-2023 ambulatory Bhupendra Mcfadden MD Work Phone: Endocrinology Comment on above: [facility] form for my insurance Start: 04-20-2023 Telephone encounter Bhupendra donahue MD Work Phone: Endocrinology Comment on above: Results Start: 04-10-2023 ambulatory Bhupendra Mcfadden MD Work Phone: Endocrinology Comment on above: Request for tests Start: 04-06-2023 Telephone encounter Bhupendar donahue MD Work Phone: [facility] [place] Comment on above: Medication Preauthor ization (Testosterone) Medication Preauthor ization (Testosterone approved) Start: 10-27-2022 End: 10-28-2022 ambulatory BHUPENDRA MCFADDEN Facility:[facility] Start: 10-27-2022 End: 10-27-2022 Patient encounter procedure Bhupendra Mcfadden MD Work Phone: Endocrinology Comment on above: Hypogonadism, male ( Primary Dx); High serum bone-specific alkaline phosphatase Start: 06-17-2022 End: 06-17-2022 ambulatory Bhupendra Mcfadden MD Work Phone: Endocrinology Comment on above: Hypogonadism, male ( Primary Dx); High serum bone-specific alkaline phosphatase New prescription Start: 06-17-2022 End: 06-17-2022 Telemedicine consultation with patient Bhupendra Mcfadden MD Work Phone: [facility] Start: 04-27-2022 ambulatory Bhupendra Mcfadden MD Work Phone: [facility] Start: 04-27-2022 Patient encounter procedure Bhupendra Mcfadden MD Work Phone: Endocrinology Comment on above: Appointment Refill Request Start: 04-25-2022 Refill Bhupendra Mcfadden MD Work Phone: Endocrinology Comment on above: Refill Request Start: 02-15-2022 ambulatory Bhupendra Mcfadden MD Work Phone: Endocrinology Comment on above: Test result Start: 02-15-2022 E-mail encounter fro m caregiver Bhupendra Mcfadden MD Work Phone: [facility] Start: 02-05-2022 Telephone encounter Bhupendra donahue MD Work Phone: Endocrinology Comment on above: lab results; Outside lab results request Start: 02-05-2022 End: 02-05-2022 ambulatory Bhupendra Mcfadden MD Work Phone: Endocrinology Comment on above: Hypogonadism, male ( Primary Dx); Pituitary cyst (HCC); High serum bone-specific alkaline phosphatase Start: 02-05-2022 End: 02-05-2022 Telemedicine consultation with patient Bhupendra Mcfadden MD Work Phone: [facility] Start: 02-01-2022 End: 02-02-[address] DOCTOR BOYD Facility:[facility] Start: 11-28-2021 [facility] Get Medical Advice Bhupendra mackey MD Work Phone: Endocrinology Comment on above: Refill Start: 11-24-2021 End: 11-24-[address] JULES PEDRO Facility:[facility] Start: 11-18-2021 End: 11-19-[address] DOCTOR BOYD Facility:[facility] Start: 11-03-2021 ambulatory Bhupendra Mcfadden MD Work Phone: Endocrinology Comment on above: [facility] Start: 10-06-2021 Telephone encounter Bhupendra donahue MD Work Phone: Endocrine Surgery Comment on above: Question Start: 10-05-2021 Refill Bhupendra Mcfadden MD Work Phone: Endocrinology Comment on above: Refill Request Start: 09-17-2021 Telephone encounter Bhupendra donahue MD Work Phone: Endocrinology Comment on above: Received Outside Med ical Records Start: 09-11-2021 End: 09-12-[address] DOCTOR BOYD Facility:[facility] Start: 08-18-2021 Telephone encounter Bhupendra donahue MD Work Phone: Endocrinology Comment on above: Results (Received ou tside MRI results collected on 08/13/21.) Start: 08-16-2021 Telephone encounter Bhupendra donahue MD Work Phone: Endocrinology Comment on above: Results (Received ou tside lab results collected on 08/13/21) Start: 08-13-2021 Telephone encounter Bhupendra donahue MD Work Phone: Endocrinology Comment on above: Outside Lab Results Start: 08-13-2021 End: 08-14-[address] DOCTOR BOYD Facility:[facility] Start: 07-22-2021 ambulatory Bhupendra Mcfadden MD Work Phone: Endocrinology Comment on above: Gel testosterone pre scription Start: 07-21-2021 ambulatory Bhupendra Mcfadden MD Work Phone: Endocrinology Comment on above: Testosterone gel Start: 07-15-2021 Telephone encounter Bhupendra donahue MD Work Phone: Endocrinology Comment on above: Letter Start: 07-13-2021 Telephone encounter Bhupendra donahue MD Work Phone: Endocrinology Comment on above: Outside Lab Results ([facility]) Start: 07-12-2021 End: 07-13-[address] JULES PEDRO Facility:[facility] Start: 07-12-2021 Telephone encounter Bhupendra donahue MD Work Phone: Endocrinology Comment on above: vv prep Insurance Authorizat ion (Testosterone Gel) Start: 07-09-2021 ambulatory Bhupendra Mcfadden MD Work Phone: Endocrinology Comment on above: Gel testosterone pre scription Start: 07-07-2021 End: 07-08-[address] JULES PEDRO Facility:[facility] Procedures Date Procedure Procedure Detail Performing Clinician Start: 04-17-2023 TESTOSTERONE, FREE Alicia Mcfadden MD Work Phone: Plan of Treatment Date Care Activity Detail Author Start: 10-29-2023 Influenza vaccination Influenz a Vaccine (Season Ended) [facility] Start: 06-30-2023 End: 06-30-2023 Follow-up encounter 06/30/2023 1:40 PM EDT [facility] [address] [place], [place] [id number] Bhupendra Mcfadden MD [address] [place], [place] [id number] follow up Endocrinology Comment on above: follow up Start: 02-27-2023 Behavioral Health Screening Behavioral Health Screening [facility] Start: 02-27-2023 [facility] Start: 10-28-2022 Covid-19 Vaccine ( season) Covid-19 Vaccine ( season) [facility] Start: 10-28-2022 Influ[facility] Start: 10-27-2022 End: 12-27-2022 ALK PHOS BONE SPEC [facility] Work Phone: Comment on above: Expected: 10/27/2022 , Expires: 12/27/2022 Start: 02-27-2022 [facility] Start: 10-28-2021 Influenza vaccination C [facility] Start: 02-27-2021 [facility] Start: 2021 Hepatitis B Vaccine (1 of 3 - 19+ 3-dose series) Hepatitis B Vaccine (1 of 3 - 19+ 3-dose series) [facility] Start: 2021 Urine microalbumin profile [facility] Start: 02-15-2020 HEPATITIS C SCREENING HEPATITIS C SC REENING [facility] Start: 02-15-2020 Hepatitis C screening Hepatitis C Sc reening [facility] Start: 02-15-2020 HIV SCREENING HIV SCREENING [facility] Start: 02-15-2020 HIV screening HIV Screening [facility] Start: 2018 Meningococcal B Vaccine: Consider Based On Risk (1 of 2 - Patient Seeks Protection) Meningococcal B Vaccine: Consider Based On Risk (1 of 2 - Patient Seeks Protection) [facility] Start: 2018 MENINGOCOCCAL B: Consider based on risk (1 of 2 - Patient Seeks Protection) MENINGOCOCCAL B: Consider based on risk (1 of 2 - Patient Seeks Protection) [facility] Start: 2017 HPV Vaccine (1 - Mal e 3-dose series) HPV Vaccine (1 - Male 3-dose series) [facility] Start: 02-15-2016 PEDS TO ADULT TRANSITION ANNUAL ASSESSMENT PEDS TO ADULT TRANSITION ANNUAL ASSESSMENT [facility] Start: 2014 Adult depression screening assessment DEPRESSION SCREENING [facility] Start: 2014 PEDS TO ADULT TRANSITION INITIAL DISCUSSION PEDS TO ADULT TRANSITION INITIAL DISCUSSION [facility] Start: 2013 HPV VACCINE (1 - Mal e 2-dose series) HPV VACCINE (1 - Male 2-dose series) [facility] Start: 02-15-2012 MENINGOCOCCAL B: Consider based on risk (1 of 2 - Risk Bexsero 2-dose series) MENINGOCOCCAL B: Consider based on risk (1 of 2 - Risk Bexsero 2-dose series) [facility] Start: 2011 HPV VACCINE (1 - Mal e 2-dose series) HPV VACCINE (1 - Male 2-dose series) [facility] Start: 2007 COVID-19 VACCINE (#1) COVID-19 VACCI NE (#1) [facility] Start: 2002 COVID-19 VACCINE (#1) COVID-19 VACCI NE (#1) [facility] Start: 2002 HEPATITIS B (1 of 3 - 3-dose series) HEPATITIS B (1 of 3 - 3-dose series) [facility] Start: 2002 Hepatitis B Vaccine (1 of 3 - 3-dose series) Hepatitis B Vaccine (1 of 3 - 3-dose series) [facility] Payers Date Payer Category Payer Unknown [id number] 2021 Unknown MMO MMO [employer] [id number] 2021-Present [phone] [address] [address] [place] [address] Indemnity [id number] 2015 Unknown MMO MMO [employer] xxxx [id number] 2015-Present [phone] [address] [address] [place] [address] PPO [id number] 2015 Unknown [id number] 2002 Unknown [id number] 2002 Unknown [id number] 2002 Unknown [id number] 2002 Unknown [id number] 2002 Unknown [id number] 2002 Unknown [id number] 2002 Unknown [id number] 1959 Unknown [id number] 1959 Unknown [id number] 1959 Unknown [id number] Social History Date Type Detail Facility Start: 07-05-2021 End: 10-27-2022 Tobacco smoking status NHIS Never smoked tobacco [facility] Start: 07-05-2021 End: 10-27-2022 Tobacco use and exposure Smokeless tobacco non-user [facility] Start: 2002 Sex Assigned At Male C [facility] Start: 06-25-2021 End: 07-05-2021 Exposure to SARS-CoV-2 (event) Not sure [facility] Start: 09-26-2021 End: 10-06-2021 Exposure to SARS-CoV-2 (event) Yes [facility] Start: 10-27-2022 History of Social function [facility] Start: 10-27-2022 Tobacco use panel [facility] National Score (1-10 0), lower number is lower risk 76 [facility] Start: 03-05-2021 Gender identity Identifies as male gender (finding) [facility] Start: 03-05-2021 Sexual orientation Heterosexual (jose dawson) [facility] Clinical Notes 07-12-2021 to 06-30-2023 Bhupendra Mcfadden MD - 06/30/2023 1:35 PM EDTTelephone Encounter - Latonya Dumont RN - 06/28/2023 5:43 PM EDTTelephone Encounter - Latonya Dumont RN - 06/28/2023 5:43 PM EDT Note Date & Type Note Facility 06-30-2023 Note HNO ID: [id number] Author: BHUPENRDA MCFADDEN MD Service: ? Author Type: Physician Type: Progress Notes Filed: 06/30/2023 13:53 Note Text: Distance Health/Virtual Visit Through [facility] The patient's physical location ([place]) was verified at the time of this visit. Either the patient or their legal wire rope sales representative has been informed of the risks and benefits of -- and alternatives to -- treatment through a remote evaluation and consents to proceed with the evaluation remotely. HISTORY OF PRESENT ILLNESS: Roman 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 Interval History: Patient is feeling well, he is presenting for routine follow up. He has no new complaint. He is satisfied with the treatment. ROS is negative as below. He has been exercising about thrice a week. His weight is stable. Patient takes no calcium or vitamin D. Review of Systems Constitutional: Negative for night sweats and recent unintentional weight change. Eyes: Negative for visual disturbance. Respiratory: Negative for difficulty breathing. Cardiovascular: Negative for chest pain and leg swelling. Gastrointestinal: Negative for nausea and diarrhea. Musculoskeletal: Negative for myalgias. Neurological: Negative for dizziness and headaches. Answers submitted by the patient for this visit: Core Review of Systems (Submitted on 06/28/2023) Fever : No Nasal Congestion: No Hearing Loss: No A cough: No Irregular heartbeat: No Black tarry stools: No Difficulty Urinating?: No Awaken at Night More Than Once to Urinate?: No Joint pain or stiffness: No Leg or Foot Discomfort at Night?: No A rash: No Memory Loss: No Seizures: No Current Outpatient Medications Medication Sig testosterone 1.62 % (40.5 mg/2.5 gram) glpk Apply one packet per day alternating with 2 packet per day. Requested dispense is 3 months supply = 337.5 gram of the gel = 135 packets. No current facility-administered medications for this visit. Video Exam: Patient is alert and oriented, no distress. Patient has no Cushinoid facial features No exophthalmos No visible goiter on neck inspection Latest Ref Rng 10/27/2022 Albumin 3.9 - 4.9 g/dL 4.9 Albumin 3.9 - 4.9 g/dL 5.0 (H) Calcium 8.5 - 10.2 mg/dL 10.0 Phosphorus 2.7 - 4.8 mg/dL 3.6 Glucose 74 - 99 mg/dL 88 BUN 9 - 24 mg/dL 14 Creatinine 0.73 - 1.22 mg/dL 0.98 Sodium 136 - 144 mmol/L 141 Potassium 3.7 - 5.1 mmol/L 4.4 Chloride 97 - 105 mmol/L 103 CO2 22 - 30 mmol/L 27 Anion Gap 9 - 18 mmol/L 11 eGFR >=60 mL/min/1.73m? 113 Sex Hormone Bind GLB 14 - 82 nmol/L 27 Testosterone 193 - 824 ng/dL 621 Testosterone, Free Calculation 38.0 - 120.0 pg/mL 124.0 (H) Testosterone, Percent Free 1.1 - 2.6 % 2.0 Testosterone, Bioavailable 105.0 - 324.0 ng/dL 386.8 (H) Alk Phosphatase, Bone 10.0 - 28.8 ug/L 34.9 (H) Hemoglobin 13.0 - 17.0 g/dL 15.0 PTH, Intact 15 - 65 pg/mL 40 IMPRESSION AND PLAN: 1. 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 Pituitary looked normal on MRI (Mar 2020 and July 2021). Incidentally, a 2.5 mm pituitary/arachnoid cyst was diagnosed. Testicular ultrasound had confirmed small testicles, no other finding. Treatment appeared to be adequate per labs in Mar, 2023. Repeat labs (free testosterone and Hgb). 2. Elevated Alk phos, bone specific: Incidental finding on labs July 05, 2021. No explanation is identified for this elevated Alk phos (other than hypogonadism). PTH and vitamin D were normal. Vitamin D was on the lower limit of reference range (Oct, 2021). Bone survey was normal (August,). Bone alk phos was only mildly elevated on labs September,. Repeat evaluation. 3. Pituitary Cyst: An incidental finding on a pituitary MRI Mar, 2020. No new item today. Inactive problem. Pituitary functions test are normal (labs July,). The cyst was stable on follow up pituitary MRI July,. 4. Labs are requested as lab request letter. 5. Follow up in office in one year and as needed based on test results. Patient expressed understanding and agreed with plan. He was accompanied by his mother. Bhupendra Mcfadden MD, JUAN J [facility] 06-30-2023 History of Presen t illness Narrative Images from the original note were not included. Distance Health/Virtual Visit Through [facility] The patient's physical location ([place]) was verified at the time of this visit. Either the patient or their legal wire rope sales representative has been informed of the risks and benefits of -- and alternatives to -- treatment through a remote evaluation and consents to proceed with the evaluation remotely. HISTORY OF PRESENT ILLNESS: Roman 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 Interval History: Patient is feeling well, he is presenting for routine follow up. He has no new complaint. He is satisfied with the treatment. ROS is negative as below. He has been exercising about thrice a week. His weight is stable. Patient takes no calcium or vitamin D. Review of Systems Constitutional: Negative for night sweats and recent unintentional weight change. Eyes: Negative for visual disturbance. Respiratory: Negative for difficulty breathing. Cardiovascular: Negative for chest pain and leg swelling. Gastrointestinal: Negative for nausea and diarrhea. Musculoskeletal: Negative for myalgias. Neurological: Negative for dizziness and headaches. Answers submitted by the patient for this visit: Core Review of Systems (Submitted on 06/28/2023) Fever : No Nasal Congestion: No Hearing Loss: No A cough: No Irregular heartbeat: No Black tarry stools: No Difficulty Urinating?: No Awaken at Night More Than Once to Urinate?: No Joint pain or stiffness: No Leg or Foot Discomfort at Night?: No A rash: No Memory Loss: No Seizures: No Current Outpatient Medications Medication Sig testosterone 1.62 % (40.5 mg/2.5 gram) glpk Apply one packet per day alternating with 2 packet per day. Requested dispense is 3 months supply = 337.5 gram of the gel = 135 packets. No current facility-administered medications for this visit. Video Exam: Patient is alert and oriented, no distress. Patient has no Cushinoid facial features No exophthalmos No visible goiter on neck inspection Latest Ref Rng 10/27/2022 Albumin 3.9 - 4.9 g/dL 4.9 Albumin 3.9 - 4.9 g/dL 5.0 (H) Calcium 8.5 - 10.2 mg/dL 10.0 Phosphorus 2.7 - 4.8 mg/dL 3.6 Glucose 74 - 99 mg/dL 88 BUN 9 - 24 mg/dL 14 Creatinine 0.73 - 1.22 mg/dL 0.98 Sodium 136 - 144 mmol/L 141 Potassium 3.7 - 5.1 mmol/L 4.4 Chloride 97 - 105 mmol/L 103 CO2 22 - 30 mmol/L 27 Anion Gap 9 - 18 mmol/L 11 eGFR >=60 mL/min/1.73m 113 Sex Hormone Bind GLB 14 - 82 nmol/L 27 Testosterone 193 - 824 ng/dL 621 Testosterone, Free Calculation 38.0 - 120.0 pg/mL 124.0 (H) Testosterone, Percent Free 1.1 - 2.6 % 2.0 Testosterone, Bioavailable 105.0 - 324.0 ng/dL 386.8 (H) Alk Phosphatase, Bone 10.0 - 28.8 ug/L 34.9 (H) Hemoglobin 13.0 - 17.0 g/dL 15.0 PTH, Intact 15 - 65 pg/mL 40 IMPRESSION AND PLAN: 1. 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 Pituitary looked normal on MRI (Mar 2020 and July 2021). Incidentally, a 2.5 mm pituitary/arachnoid cyst was diagnosed. Testicular ultrasound had confirmed small testicles, no other finding. Treatment appeared to be adequate per labs in Mar, 2023. Repeat labs (free testosterone and Hgb). 2. Elevated Alk phos, bone specific: Incidental finding on labs July 05, 2021. No explanation is identified for this elevated Alk phos (other than hypogonadism). PTH and vitamin D were normal. Vitamin D was on the lower limit of reference range (Oct, 2021). Bone survey was normal (August,). Bone alk phos was only mildly elevated on labs September,. Repeat evaluation. 3. Pituitary Cyst: An incidental finding on a pituitary MRI Mar, 2020. No new item today. Inactive problem. Pituitary functions test are normal (labs July,). The cyst was stable on follow up pituitary MRI July,. 4. Labs are requested as lab request letter. 5. Follow up in office in one year and as needed based on test results. Patient expressed understanding and agreed with plan. He was accompanied by his mother. Bhupendra Mcfadden MD, JUAN J documented in this encounter [facility] 06-28-2023 Telephone encounter Note First available virtual visit scheduled with Dr. Mcfadden on 06/30/2023. Patient updated via [employer] message. Ashwini Dumont RN [facility] 06-28-2023 Miscellaneous Notes First available virtual visit scheduled with Dr. Mcfadden on 06/30/2023. Patient updated via [employer] message. Ashwini Dumont RN documented in this encounter [facility] 06-02-2023 Miscellaneous Notes Please advise testosterone dose. Per refill sent 01/31/2023 patient to use 1 packet daily. Per ADALBERTO 10/27/2022: Patient is currently on treatment with testosterone gel 1.62%, using 2.5 gram packs, alternating 1 pack per day and 2 packs per day.. Thank you! Ashwini Dumont RN documented in this encounter [facility] 05-12-2023 Miscellaneous Notes Form completed and faxed. I completed the form. Additional information still needed (NPI #, address and patient's insurance etc.). Also, copies of prior visit notes and labs. Please finalize and send. Bhupendra Mcfadden MD, JUAN J Form was placed on your desk. I have printed off the form. Not sure why though? Medication has already been approved. documented in this encounter [facility] 04-20-2023 Miscellaneous Notes Lab results received for Testosterone. Updated in [facility] as External Lab. Sent lab to scanning. documented in this encounter [facility] 04-06-2023 Miscellaneous Notes Testosterone has been approved Notified patient through [employer] Approved [id number] Prior authorization approved Payer: Hilda MARU Case: [id number], Status: Approved, Coverage Starts on: 04/06/2023 12:00:00 AM, Coverage Ends on: 04/05/2024 12:00:00 AM. Approval Details Authorization number: [id number] Authorized from April 06, 2023 to April 05, 2024 documented in this encounter [facility] 04-06-2023 Miscellaneous Notes Initiated PA for Testosterone through [employer] via [facility] Waiting for next steps Questions completed- yes Waiting for determination -pending documented in this encounter [facility] 10-27-2022 Note HNO ID: [id number] Author: Bhupendra Mcfadden MD Service: ? Author Type: Physician Type: Progress Notes Filed: 10/27/2022 4:34 PM Note Text: HISTORY OF PRESENT ILLNESS: Roman 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 Interval History: Patient is feeling well. He is using his testosterone regularly for the most part. He may forget to use it on occassions. Patient is taking no calcium and vitamin D. Patient is exercising 3 times a week, each is about 60 minutes. Patient has stable weight Current Outpatient Medications Medication Sig testosterone 1.62 % (40.5 mg/2.5 gram) glpk Apply one packet per day alternating with 2 packet per day. Requested dispense is 3 months supply = 337.5 gram of the gel = 135 packets. No current facility-administered medications for this visit. PHYSICAL EXAMINATION: BP 118/79 Pulse 68 Resp 16 Wt 71.2 kg (157 lb) BMI 21.71 kg/m? Normal appearance and development of muscle mass HEENT: no pallor or jaundice, no exophthalmous or lid lag Neck: no thyromegaly, no adenopathy, no thyroid or carotid bruit. Heart: RRR no murmur or gallop Deep tendon reflexes are + 2 with normal relaxation phase and no tremor in upper extremities. There were no new labs since last visit May,. IMPRESSION AND PLAN: 1. 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 Pituitary looked normal on MRI (Mar 2020 and July 2021). Incidentally, a 2.5 mm pituitary/arachnoid cyst was diagnosed. Testicular ultrasound confirmed small testicles, no other finding. Patient is currently on treatment with testosterone gel 1.62%, using 2.5 gram packs, alternating 1 pack per day and 2 packs per day. Obtain labs. Patient's mother indicated the need for prior auth for testosterone gel. We will process this request. 2. Elevated Alk phos, bone specific: Incidental finding on labs July 05, 2021. No explanation is identified for this elevated. PTH and vitamin D were normal. Vitamin D was on the lower limit of reference range (Oct, 2021). Bone survey was normal (August,). Repeat labs 3. Pituitary Cyst: An incidental finding on a pituitary MRI Mar, 2020. No new item today. Inactive problem. Pituitary functions test are normal (labs July,). The cyst was stable on follow up pituitary MRI July,. Patient expressed understanding and agreed with plan. He was accompanied by his mother. Bhupendra Mcfadden MD, JUAN J [facility] 10-27-2022 History of Presen t illness Narrative HISTORY OF PRESENT ILLNESS: Roman 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 Interval History: Patient is feeling well. He is using his testosterone regularly for the most part. He may forget to use it on occassions. Patient is taking no calcium and vitamin D. Patient is exercising 3 times a week, each is about 60 minutes. Patient has stable weight Current Outpatient Medications Medication Sig testosterone 1.62 % (40.5 mg/2.5 gram) glpk Apply one packet per day alternating with 2 packet per day. Requested dispense is 3 months supply = 337.5 gram of the gel = 135 packets. No current facility-administered medications for this visit. PHYSICAL EXAMINATION: BP 118/79 Pulse 68 Resp 16 Wt 71.2 kg (157 lb) BMI 21.71 kg/m Normal appearance and development of muscle mass HEENT: no pallor or jaundice, no exophthalmous or lid lag Neck: no thyromegaly, no adenopathy, no thyroid or carotid bruit. Heart: RRR no murmur or gallop Deep tendon reflexes are + 2 with normal relaxation phase and no tremor in upper extremities. There were no new labs since last visit May,. IMPRESSION AND PLAN: 1. 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 Pituitary looked normal on MRI (Mar 2020 and July 2021). Incidentally, a 2.5 mm pituitary/arachnoid cyst was diagnosed. Testicular ultrasound confirmed small testicles, no other finding. Patient is currently on treatment with testosterone gel 1.62%, using 2.5 gram packs, alternating 1 pack per day and 2 packs per day. Obtain labs. Patient's mother indicated the need for prior auth for testosterone gel. We will process this request. 2. Elevated Alk phos, bone specific: Incidental finding on labs July 05, 2021. No explanation is identified for this elevated. PTH and vitamin D were normal. Vitamin D was on the lower limit of reference range (Oct, 2021). Bone survey was normal (August,). Repeat labs 3. Pituitary Cyst: An incidental finding on a pituitary MRI Mar, 2020. No new item today. Inactive problem. Pituitary functions test are normal (labs July,). The cyst was stable on follow up pituitary MRI July,. Patient expressed understanding and agreed with plan. He was accompanied by his mother. Bhupendra Mcfadden MD, JUAN J documented in this encounter [facility] 06-23-2022 Miscellaneous Notes Script placed in mail today. documented in this encounter [facility] 06-17-2022 History of Presen t illness Narrative Distance Health/Virtual Visit Through [facility] The patient's physical location ([place]) was verified at the time of this visit. Either the patient or their legal wire rope sales representative has been informed of the risks and benefits of -- and alternatives to -- treatment through a remote evaluation and consents to proceed with the evaluation remotely. HISTORY OF PRESENT ILLNESS: Roman 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 Interval History: Patient is feeling well, has no new concern. He is feeling well/better with testosterone therapy. He is interested in increasing his dosage, as I suggested in a previous [employer] message. He was/is concerned about insurance coverage for testosterone pump. Currently, he is using packets. Review of Systems Constitutional: Negative for night sweats and recent unintentional weight change. Eyes: Negative for visual disturbance. Respiratory: Negative for difficulty breathing. Cardiovascular: Negative for chest pain and leg swelling. Gastrointestinal: Negative for nausea and diarrhea. Musculoskeletal: Negative for myalgias. Neurological: Negative for dizziness and headaches. Answers submitted by the patient for this visit: Core Review of Systems (Submitted on 06/17/2022) Fever : No Nasal Congestion: No Hearing Loss: No A Cough: No Irregular Heart Beat: No Black Tarry Stools: No Difficulty Urinating?: No Awaken at Night More Than Once to Urinate?: No Joint Pain or Stiffness: No Leg or Foot Discomfort at Night?: No A Rash: No Memory Loss: No Seizures: No Video Exam: Patient is alert and oriented, no distress. Patient has no Cushinoid facial features No exophthalmos No visible goiter on neck inspection IMPRESSION AND PLAN: 1. 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 Pituitary looked normal on MRI. Incidentally, a 2.5 mm pituitary/arachnoid cyst was diagnosed. Testicular ultrasound confirmed small testicles, no other finding. Patient is currently on treatment with testosterone gel 1.62%, 2.5 gram daily. Free Testosterone level was mildly low and bioavailable testosterone was on the lower limit of normal per labs Jan, 2022. Increase testosterone gel 1.62%, using packets, to two packet per day alternating with one packet per day. Repeat labs in 2 months. 2. Elevated Alk phos, bone specific: Incidental finding on labs July 05, 2021. No explanation is identified for this elevated. PTH and vitamin D were normal. Vitamin D was on the lower limit of reference range (Oct, 2021). Bone survey was normal (August,). Repeat labs, same time as repeating testosterone. 3. Pituitary Cyst: An incidental finding on a pituitary MRI Mar, 2020. No new item today. Inactive problem. Pituitary functions test are normal (labs July,). The cyst was stable on follow up pituitary MRI July,. Patient expressed understanding and agreed with plan. He was accompanied by his mother. Bhupendra Mcfadden MD, JUAN J documented in this encounter [facility] 04-28-2022 Miscellaneous Notes Requester: Patient Patients last Endocrinology visit occurred 02/05/22. Follow-up evaluation has been established 06/17/22. Requested Prescriptions Pending Prescriptions Disp Refills testosterone 1.62 % (40.5 mg/2.5 gram) glpk 75 g 2 Sig: APPLY ONE PACKET TO THE SKIN DAILY DIRECTED If patient is due for an appointment please route to provider for refill consideration and also to the endo scheduling pool. PSS NOTE: Patient needs scheduled appointment No documented in this encounter [facility] 04-25-2022 Miscellaneous Notes Requester: Patient Patients last Endocrinology visit occurred 02/05/2022. Follow-up evaluation needs to be scheduled. Requested Prescriptions Pending Prescriptions Disp Refills testosterone 1.62 % (40.5 mg/2.5 gram) glpk [Pharmacy Med Name: TESTOSTERONE 1.62% (2.5 G) PKT] 75 g Sig: APPLY ONE PACKET TO THE SKIN DAILY DIRECTED If patient is due for an appointment please route to provider for refill consideration and also to the endo scheduling pool. PSS NOTE: Patient needs scheduled appointment Yes documented in this encounter [facility] 02-18-2022 Miscellaneous Notes Called home number no answer message left should the patient return call please relay message in mychart Please inform the patient of the message. He did not read it. Bhupendra Mcfadden MD, JUAN J documented in this encounter [facility] 02-10-2022 Miscellaneous Notes Call made to Cassidy, she reported that the blood work results will not be available for 6-12 days, results will be faxed once available Cassidy from [facility] called. She says that there was an issue with the lab request and she was hoping to speak with a nurse in endocrinology. Could someone call her at [phone] ext [phone]? Thanks. Call made to [facility] [phone] request for blood work drawnon January 31 2022 made via fax conformation received. Please obtain results of blood work done on Jan 31, 2022 at [place], [place] Bhupendra Mcfadden MD, JUAN J documented in this encounter [facility] 02-05-2022 History of Presen t illness Narrative Distance Health/Virtual Visit Through [facility] HISTORY OF PRESENT ILLNESS: Roman 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 Patient presented with his mother. 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 He was evaluated at age 20 years. He was started on testosterone 150 mg every 2 weeks. Patient responded well to testosterone treatment. Patient has been feeling well. He has been using testosterone gel for the past 2 months, he is feeling well with no side effect. Patient is taking no vitamin D supplement. Patient reports stable weight. Review of Systems Constitutional: Negative for night sweats and recent unintentional weight change. Eyes: Negative for visual disturbance. Respiratory: Negative for difficulty breathing. Cardiovascular: Negative for chest pain and leg swelling. Gastrointestinal: Negative for nausea and diarrhea. Musculoskeletal: Negative for myalgias. Neurological: Negative for dizziness and headaches. Answers submitted by the patient for this visit: Core Review of Systems (Submitted on 02/05/2022) Fever : No Nasal Congestion: No Hearing Loss: No A Cough: No Irregular Heart Beat: No Black Tarry Stools: No Difficulty Urinating?: No Awaken at Night More Than Once to Urinate?: No Joint Pain or Stiffness: No Leg or Foot Discomfort at Night?: No A Rash: No Memory Loss: No Seizures: No Video Exam: Patient is alert and oriented, no distress. Patient has no Cushinoid facial features No exophthalmos No visible goiter on neck inspection Patient's most recent labs done on Jan 31, 2022 were not received are not available on Care Everywhere. Prior labs and imaging studies are scanned to [facility] and available on Care Everywhere (under documents, [facility], [facility]). A prior clinical note included a nice summary of his work up and some of his labs. The actual reports of pituitary MRI, scrotum/testicular ultrasound, baseline labs and genetic testing are not received. Scan dates: 07-07 through 2021 Relevant results are summarized below. IMPRESSION AND PLAN: 1. 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 Pituitary looked normal on MRI. Incidentally, a 2.5 mm pituitary/arachnoid cyst was diagnosed. Testicular ultrasound confirmed small testicles, no other finding. Patient is currently on treatment with testosterone gel 1.62%, 2.5 gram daily. Clinically, he is doing well on this dosage. We will obtain record of blood work, we will decide about dosage adjustment accordingly, if needed. 2. Pituitary Cyst: An incidental finding on a pituitary MRI Mar, 2020. Pituitary functions test are normal (labs July,). The cyst is stable on follow up pituitary MRI July,. No additional work up is indicated unless there are new symptoms (discussed). 4. Elevated Alk phos, bone specific: Incidental finding on labs July 05, 2021. Last available result is from Oct, 2021. Elevated Alk phos was still elevated. No explanation is identified for this elevated. PTH and vitamin D were normal. Vitamin D was on the lower limit of reference range (Oct, 2021). Bone survey was normal (August,). We will obtain results of recent labs. If Alk Phos remains elevated, we will attempt increasing vitamin D level. Patient expressed understanding and agreed with plan. He was accompanied by his mother. Bhupendra Mcfadden MD, JUAN J documented in this encounter [facility] 10-06-2021 Miscellaneous Notes Patient's mom called back and was relayed the message from Dr. Mcfadden. Patient was transferred to the appointment line [facility] Left message for patient to call office back. Please ask the patient to have labs done. One refill is approved for now. Patient should also schedule a follow up visit (virtual or in office) in 3 months either with me or with one of my colleagues at [facility]. Please advise the patient of the change of my practice location to [place] only The following approved medication requests have been transmitted electronically. Requested Prescriptions Signed Prescriptions Disp Refills testosterone 1.62 % (40.5 mg/2.5 gram) glpk 30 Packet 0 Sig: Apply 1 Packet as directed once daily for 30 days. Authorizing Provider: BHUPENDRA MCFADDEN MD, JUAN J Requester: Pharmacy Patients last Endocrinology visit occurred 07/14/21. Follow-up evaluation has been established no. Requested Prescriptions Pending Prescriptions Disp Refills testosterone 1.62 % (40.5 mg/2.5 gram) glpk [Pharmacy Med Name: TESTOSTERONE 1.62% (2.5 G) PKT] 30 g Sig: APPLY ONE PACKET TO THE SKIN DAILY If patient is due for an appointment please route to provider for refill consideration and also to the endo scheduling pool. PSS NOTE: Patient needs scheduled appointment Yes documented in this encounter [facility] 10-06-2021 Miscellaneous Notes Mom calls Pt identified by name and Attempting to reach Dr Mcfadden office at Transferred to [phone] documented in this encounter [facility] 09-18-2021 Miscellaneous Notes Bone survey is normal. There is no explanation for elevated bone alk phos. We will continue to monitor by lab and evaluate the need for repeat evaluations. Patient was informed through a GIROPTIC message. Bhupendra Mcfadden MD, MBA Received outside Xray results from [facility] collected 09/11/21 will index into chart. 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 Labs are a duplicate copy Patient was informed through a GIROPTIC message. Bhupendra Mcfadden MD, MBA Received lab results collected on 08/13/21 Received outside MRI results collected on 08/13/21. documented in this encounter [facility] 08-16-2021 Miscellaneous Notes Pituitary function evaluation revealed no new abnormality (he has known secondary hypogonadism). PTH calcium and vitamin D levels are normal, though vitamin D is on the lower limit of reference range. There is no clear explanation for the elevated bone alkaline phosphatase. We will proceed with bone survey. I sent a GIROPTIC message with a request for a notification if the message is not read. Bhupendra Mcfadden MD, MBA Received outside lab results collected on 08/13/21 documented in this encounter [facility] 08-14-2021 Miscellaneous Notes Lab date is July 12, showing low testosterone level. This is an older result, patient was already started on testosterone. Bhupendra Mcfadden MD, JUAN J Received outside labs from [facility]. Indexed into chart. documented in this encounter [facility] 07-15-2021 Miscellaneous Notes Mailed lab letters to patient's address on file [address] [place] [id number] Mailed letter and [place] [id number] [place] [id number] documented in this encounter [facility] 07-13-2021 Miscellaneous Notes Reviewed. Elevation of alk phos is mainly related to bone fraction. We will address tomorrow, during his virtual visit. Bhupendra Mcfadden MD, JUAN J Received outside lab results from [facility], indexed to chart documented in this encounter [facility] 07-12-2021 Miscellaneous Notes Initiated PA for Testosterone Gel through [facility] via [facility] Waiting for next steps If errors will process through covermymeds VAUGHAN: [id number] documented in this encounter [facility] 07-12-2021 Miscellaneous Notes I called the patient to prescreen prior to 07/14/21 virtual visit, but patient did not answer the phone. I left a message on patient's voicemail stating their appointment is on 07/14/21 at 4 pm, so they should log in to appointment 10-15 minutes before appointment time.Also stated to please review allergies and medications on mychart to ensure they are correct. documented in this encounter [facility] Evaluation note Diagnosis Hypogonadism, male Other testicular hypofunction [facility] Diagnosis Hypogonadism, male Other testicular hypofunction [facility] Diagnosis Hypogonadism, male- Primary Other testicular hypofunction Pituitary cyst (HCC) Other disorders of the pituitary and other syndromes of diencephalohypophyseal origin High serum bone-specific alkaline phosphatase [facility] Diagnosis Hypogonadism, male Other testicular hypofunction [facility] Diagnosis Hypogonadism, male Other testicular hypofunction [facility] Diagnosis Hypogonadism, male Other testicular hypofunction [facility] Diagnosis Hypogonadism, male- Primary Other testicular hypofunction High serum bone-specific alkaline phosphatase [facility] Hypogonadism, male Other testicular hypofunction [facility] Diagnosis Hypogonadism, male- Primary Other testicular hypofunction High serum bone-specific alkaline phosphatase [facility] Diagnosis Hypogonadism, male Other testicular hypofunction [facility] Diagnosis Hypogonadism, male- Primary Other testicular hypofunction High serum bone-specific alkaline phosphatase Abnormal karyotype Nonspecific abnormal findings on chromosomal analysis documented in this encounter [facility] Summary Purpose Family History No Family History Records FoundNo Family History Records FoundNo Family History Records Found Advance Directives No Advanced Directives Records FoundNo Advanced Directives Records FoundNo Advanced Directives Records Found Additional Source Comments Source Comments (unrecognize d section and content) In the event this informatio n is protected by the Federal Confidentiality of Alcohol and Drug Abuse Patient Records regulations: The Federal rules restrict any use of the information to criminally investigate or prosecute any alcohol or drug abuse patient.[facility] the event this information is protected by the Federal Confidentiality of Alcohol and Drug Abuse Patient Records regulations: The Federal rules restrict any use of the information to criminally investigate or prosecute any alcohol or drug abuse patient.[facility] the event this information is protected by the Federal Confidentiality of Alcohol and Drug Abuse Patient Records regulations: The Federal rules restrict any use of the information to criminally investigate or prosecute any alcohol or drug abuse patient.[facility] the event this information is protected by the Federal Confidentiality of Alcohol and Drug Abuse Patient Records regulations: The Federal rules restrict any use of the information to criminally investigate or prosecute any alcohol or drug abuse patient.[facility] the event this information is protected by the Federal Confidentiality of Alcohol and Drug Abuse Patient Records regulations: The Federal rules restrict any use of the information to criminally investigate or prosecute any alcohol or drug abuse patient.[facility] the event this information is protected by the Federal Confidentiality of Alcohol and Drug Abuse Patient Records regulations: The Federal rules restrict any use of the information to criminally investigate or prosecute any alcohol or drug abuse patient.[facility] the event this information is protected by the Federal Confidentiality of Alcohol and Drug Abuse Patient Records regulations: The Federal rules restrict any use of the information to criminally investigate or prosecute any alcohol or drug abuse patient.[facility] the event this information is protected by the Federal Confidentiality of Alcohol and Drug Abuse Patient Records regulations: The Federal rules restrict any use of the information to criminally investigate or prosecute any alcohol or drug abuse patient.[facility] the event this information is protected by the Federal Confidentiality of Alcohol and Drug Abuse Patient Records regulations: The Federal rules restrict any use of the information to criminally investigate or prosecute any alcohol or drug abuse patient.[facility] the event this information is protected by the Federal Confidentiality of Alcohol and Drug Abuse Patient Records regulations: The Federal rules restrict any use of the information to criminally investigate or prosecute any alcohol or drug abuse patient.[facility] the event this information is protected by the Federal Confidentiality of Alcohol and Drug Abuse Patient Records regulations: The Federal rules restrict any use of the information to criminally investigate or prosecute any alcohol or drug abuse patient.[facility] Hospital[facility] the event this information is protected by the Federal Confidentiality of Alcohol and Drug Abuse Patient Records regulations: The Federal rules restrict any use of the information to criminally investigate or prosecute any alcohol or drug abuse patient.[facility] HospitalIn the event this information is protected by the Federal Confidentiality of Alcohol and Drug Abuse Patient Records regulations: The Federal rules restrict any use of the information to criminally investigate or prosecute any alcohol or drug abuse patient.[facility] HospitalIn the event this information is protected by the Federal Confidentiality of Alcohol and Drug Abuse Patient Records regulations: The Federal rules restrict any use of the information to criminally investigate or prosecute any alcohol or drug abuse patient.[facility] HospitalIn the event this information is protected by the Federal Confidentiality of Alcohol and Drug Abuse Patient Records regulations: The Federal rules restrict any use of the information to criminally investigate or prosecute any alcohol or drug abuse patient.[facility] HospitalIn the event this information is protected by the Federal Confidentiality of Alcohol and Drug Abuse Patient Records regulations: The Federal rules restrict any use of the information to criminally investigate or prosecute any alcohol or drug abuse patient.[facility] HospitalIn the event this information is protected by the Federal Confidentiality of Alcohol and Drug Abuse Patient Records regulations: The Federal rules restrict any use of the information to criminally investigate or prosecute any alcohol or drug abuse patient.[facility] HospitalIn the event this information is protected by the Federal Confidentiality of Alcohol and Drug Abuse Patient Records regulations: The Federal rules restrict any use of the information to criminally investigate or prosecute any alcohol or drug abuse patient.[facility] HospitalIn the event this information is protected by the Federal Confidentiality of Alcohol and Drug Abuse Patient Records regulations: The Federal rules restrict any use of the information to criminally investigate or prosecute any alcohol or drug abuse patient.[facility] HospitalIn the event this information is protected by the Federal Confidentiality of Alcohol and Drug Abuse Patient Records regulations: The Federal rules restrict any use of the information to criminally investigate or prosecute any alcohol or drug abuse patient.[facility] HospitalIn the event this information is protected by the Federal Confidentiality of Alcohol and Drug Abuse Patient Records regulations: The Federal rules restrict any use of the information to criminally investigate or prosecute any alcohol or drug abuse patient.[facility] HospitalIn the event this information is protected by the Federal Confidentiality of Alcohol and Drug Abuse Patient Records regulations: The Federal rules restrict any use of the information to criminally investigate or prosecute any alcohol or drug abuse patient.[facility] HospitalIn the event this information is protected by the Federal Confidentiality of Alcohol and Drug Abuse Patient Records regulations: The Federal rules restrict any use of the information to criminally investigate or prosecute any alcohol or drug abuse patient.[facility] HospitalIn the event this information is protected by the Federal Confidentiality of Alcohol and Drug Abuse Patient Records regulations: The Federal rules restrict any use of the information to criminally investigate or prosecute any alcohol or drug abuse patient.[facility] HospitalIn the event this information is protected by the Federal Confidentiality of Alcohol and Drug Abuse Patient Records regulations: The Federal rules restrict any use of the information to criminally investigate or prosecute any alcohol or drug abuse patient.[facility] HospitalIn the event this information is protected by the Federal Confidentiality of Alcohol and Drug Abuse Patient Records regulations: The Federal rules restrict any use of the information to criminally investigate or prosecute any alcohol or drug abuse patient.[facility] HospitalIn the event this information is protected by the Federal Confidentiality of Alcohol and Drug Abuse Patient Records regulations: The Federal rules restrict any use of the information to criminally investigate or prosecute any alcohol or drug abuse patient.[facility] HospitalIn the event this information is protected by the Federal Confidentiality of Alcohol and Drug Abuse Patient Records regulations: The Federal rules restrict any use of the information to criminally investigate or prosecute any alcohol or drug abuse patient.[facility] HospitalIn the event this information is protected by the Federal Confidentiality of Alcohol and Drug Abuse Patient Records regulations: The Federal rules restrict any use of the information to criminally investigate or prosecute any alcohol or drug abuse patient.[facility] HospitalIn the event this information is protected by the Federal Confidentiality of Alcohol and Drug Abuse Patient Records regulations: The Federal rules restrict any use of the information to criminally investigate or prosecute any alcohol or drug abuse patient.[facility] HospitalIn the event this information is protected by the Federal Confidentiality of Alcohol and Drug Abuse Patient Records regulations: The Federal rules restrict any use of the information to criminally investigate or prosecute any alcohol or drug abuse patient.[facility] HospitalIn the event this information is protected by the Federal Confidentiality of Alcohol and Drug Abuse Patient Records regulations: The Federal rules restrict any use of the information to criminally investigate or prosecute any alcohol or drug abuse patient.[facility] Reason for Visit (unrecogniz ed section and content) Reason Comments vv prep Reason Comments Insurance Authorization Testosterone Gel Reason Comments Outside Lab Results [facility] Reason Comments Letter Reason Comments Outside Lab Results Reason Comments Results Received outside lab results collected on 08/13/21 Reason Comments Results Received outside MRI results collected on 08/13/21. Reason Comments Received Outside Medical Records Reason Comments Question Reason Comments Refill Request Reason Comments Hypogonadism Reason Comments lab results Outside lab results request Reason Onset Date Comments Refill Request 04/27/2022 Reason Comments Medication Preauthorization Testosterone Reason Comments Medication Preauthorization Testosterone approved Reason Comments Results Care Teams (unrecognized sec tion and content) Supply Specialist Relationship Specialty Start Date End Date Yoel Concepcion [address] [place] [address] Physician Endocrinology 06/21/21 Supply Specialist Relationship Specialty Start Date End Date Yoel Concepcion [address] [place] [address] Physician Endocrinology 06/21/21 Supply Specialist Relationship Specialty Start Date End Date Yoel Concepcion [address] [place] [address] Physician Endocrinology 06/21/21 Supply Specialist Relationship Specialty Start Date End Date Yoel Concepcion [address] [place] [address] Physician Endocrinology 06/21/21 Supply Specialist Relationship Specialty Start Date End Date Yoel Concepcion [address] [place] [address] Physician Endocrinology 06/21/21 Supply Specialist Relationship Specialty Start Date End Date Yoel Concepcion [address] [place] [address] Physician Endocrinology 06/21/21 Supply Specialist Relationship Specialty Start Date End Date Yoel Concepcion [address] [place] [address] Physician Endocrinology 06/21/21 Supply Specialist Relationship Specialty Start Date End Date Yoel Concepcion [address] [place] [address] Physician Endocrinology 06/21/21 Supply Specialist Relationship Specialty Start Date End Date Yoel Concepcion MD [address] [place] [id number] Physician Endocrinology 06/21/21 Supply Specialist Relationship Specialty Start Date End Date Yoel Concepcion MD [address] [place] [address] Physician Endocrinology 06/21/21 Supply Specialist Relationship Specialty Start Date End Date Yoel Concepcion MD [address] [place] [address] Physician Endocrinology 06/21/21 Supply Specialist Relationship Specialty Start Date End Date Yoel Concepcion MD [address] [place], [place] [id number] Physician Endocrinology 06/21/21 Supply Specialist Relationship Specialty Start Date End Date Yoel Concepcion MD [address] [place] [address] Physician Endocrinology 06/21/21 Supply Specialist Relationship Specialty Start Date End Date Yoel Concepcion MD [address] [place] [address] Physician Endocrinology 06/21/21 Supply Specialist Relationship Specialty Start Date End Date Yoel Concepcion MD [address] [place] [address] Physician Endocrinology 06/21/21 (unrecognized sect ion and content) No Status Records FoundNo Status Records FoundNo Status Records Found INFORMATION SOURCE (unrecogn ized section and content) DATE CREATED AUTHOR 02/18/[address] [facility] DATE CREATED AUTHOR AUTHOR'S ORGANIZ ATION 10/30/2022 [facility] DATE CREATED AUTHOR AUTHOR'S ORGANIZ ATION 07/02/2023 [facility] FOR RECORDS PERTAINING TO PATIENTS WHO ARE OR HAVE BEEN ENROLLED IN A CHEMICAL DEPENDENCY/SUBSTANCEABUSE PROGRAM, SOME INFORMATION MAY BE OMITTED. This clinical summary was aggregated from multiple sources. Caution should be exercised in using it in the provision of clinical care. This summary normalizes information from multiple sources, and as a consequence, information in this document may materially change the coding, format and clinical context of patient data. In addition, data may be omitted in some cases. CLINICAL DECISIONS SHOULD BE BASED ON THE PRIMARY CLINICAL RECORDS. [employer] provides no warranty or guarantee of the accuracy or completeness of information in this document.
[2023-08-12 12:39] LABS: Hemoglobin 13.6 g/dL (14.0-18.0)
[2023-08-12 12:49] LABS: Calcium 8.8 mg/dL (8.5-10.1)
[2023-08-13 12:07] LABS: PTH, Intact 49 pg/mL (15-65)
[2023-08-17 22:07] LABS: Free Testosterone(Direct) 31.4 pg/mL (9.3-26.5); Testosterone 1471 ng/dL (264-916)
== END 2023-08-12 12:12 | disposition home or self-care (01) ==
LOC: LAB 12:12
PROVIDERS: PCP Family Medicine
DX: E29.1 Testicular hypofunction (principal); R74.8 Abnormal levels of other serum enzymes
CPT/HCPCS: 36415; 82306; 82310; 83970; 84080; 84402; 84403; 85018